=== PATIENT | male | born 1975 | race Caucasian/White ===

== ENCOUNTER 2018-08-22 22:44 | Emergency (ER) | payer BC ==
[2018-08-22 22:58] VITALS: RESP 18
[2018-08-22] MEDS ORDERED: MORPHINE SULFATE 4 MG/ML SYRINGE IV STA (23:01)
[2018-08-22] MEDS ORDERED: KETOROLAC 30 MG/ML 1 ML VIAL IVP STA (23:01)
[2018-08-22] MEDS ORDERED: ONDANSETRON ODT 8 MG TAB.RAPDIS PO STA (23:01)
[2018-08-22] MEDS ORDERED: SODIUM CHLORIDE 0.9% 1,000 ML IV STA (23:01)
[2018-08-22] MEDS ORDERED: ONDANSETRON 4 MG/2 ML VIAL IVP STA (23:05)
[2018-08-22 23:24] LABS: Appearance,Urine Cloudy (Clear); Bilirubin,Urine Negative (Negative); Blood,Urine Moderate (Negative); Calcium Oxalate Crystals,Urine Moderate /hpf; Color,Urine Yellow; Glucose,Urine (UA) Negative (Negative); Ketones,Urine 2+ (Negative); Leukocyte Esterase,Urine Negative (Negative); Mucus,Urine Occasional /hpf; Nitrite,Urine Negative (Negative); Protein,Urine 1+ (Negative); RBC,Urine 51 /hpf (0-5); Specific Gravity,Urine 1.031 (1.001-1.035); Squamous Epithelial Cell,Urine <1 /hpf (0-4); Urobilinogen,Urine <2.0 mg/dL (<2.0); WBC,Urine 3 /hpf (0-5)
[2018-08-22 23:34] LABS: Albumin 4.8 g/dL (3.5-5.0); Calcium 10.4 mg/dL (8.4-10.2); Total Bilirubin 1.2 mg/dL (0.2-1.3); Total Protein 7.8 g/dL (6.3-8.2)
[2018-08-22 23:36] LABS: Basophils # (A) 0.1 k/uL (0-0.2); Basophils % (A) 0 %; Eosinophils # (A) 0.2 k/uL (0-0.7); Eosinophils % (A) 1 %; HCT 45.3 % (39.0-53.0); HGB 15.1 gm/dL (13.0-17.5); Lymphocytes # (A) 1.3 k/uL (1.0-4.8); Lymphocytes % (A) 8 %; MCH 29.3 pg (25.0-35.0); MCHC 33.3 g/dL (31.0-37.0); MCV 87.9 fL (80.0-100.0); Mean Platelet Volume 6.3; Monocytes # (A) 0.8 k/uL (0-1.0); Monocytes % (A) 5 %; Neutrophils # (A) 13.8 k/uL (1.3-7.7); Neutrophils % (A) 85 %; Platelet Count 392 k/uL (150-450); RBC 5.15 m/uL (4.30-5.90); RDW 13.1 % (11.5-15.5); WBC 16.2 k/uL (3.8-10.6)
--- NOTE | 2018-08-22 23:48 | ED ---
Abdominal Pain HPI - General Chief Complaint: Abdominal Pain Stated Complaint: KIDNEY INFECTION Time Seen by Provider: 08/22/18 22:50 Source: patient Mode of arrival: ambulatory Limitations: no limitations - History of Present Illness Initial Comments: Patient is a 43-year-old male presenting for abdominal pain. The patient states that a couple weeks ago, he was having some urinary urge and it got better. On night, he started having left-sided flank pain which was last seen about 1.5 hours. It is associated with one episode of nausea and vomiting. He didn't saw the PCP on Friday and he was told that he could possibly have a urinary tract infection and therefore he is given ciprofloxacin. He has been on that medication for 2 days and he states that at 5 PM, he had a sudden onset of left-sided flank pain which was sharp and radiating to the testicles. He felt like he was radiating as well as wrapping around the left side of his abdomen. He denies any hematuria as well as dysuria. He denies any fevers or chills. - Related Data Previous Rx's Medication Instructions Recorded EPINEPHrine [Epipen 2-Yandel] 0.3 mg IM ONCE PRN #1 applicator 03/17/16 Ibuprofen [Motrin] 800 mg PO Q6HR PRN #20 tab 03/17/16 diphenhydrAMINE [Benadryl] 50 mg PO TID #9 capsule 03/17/16 methylPREDNISolone Dose Pack 4 mg PO DIRECTED #21 package 03/17/16 [Medrol Dose Pack] HYDROcodone/APAP 10-325MG [[place] 1 tab PO Q6HR PRN 3 Days #12 tab 08/23/18 10-325] Ondansetron Odt [Zofran Odt] 4 mg PO Q8HR PRN #15 tab 08/23/18 Allergies Allergy/AdvReac Type Severity Reaction Status Date / Time Sulfa (Sulfonamide AdvReac Unknown Verified 08/22/18 22:58 Antibiotics) Review of Systems ROS Statement: Those systems with pertinent positive or pertinent negative responses have been documented in the HPI. Constitutional: Negative for chills, fatigue and fever. HENT: Negative for congestion. Respiratory: Negative for chest tightness, shortness of breath and wheezing. Negative for cough Cardiovascular: Negative for chest pain and palpitations. Gastrointestinal: Negative for abdominal pain. Negative for abdominal distention , diarrhea, positive for left flank pain and nausea and vomiting. Genitourinary: Negative for dysuria. Positive for urinary hesitancy Musculoskeletal: Negative for back pain, neck pain and neck stiffness. Skin: Negative for color change. Neurological: Negative for dizziness, speech difficulty, weakness and light- headedness. Psychiatric/Behavioral: Negative for agitation and confusion. Negative for anxiety ROS Other: All systems not noted in ROS Statement are negative. Past Medical History Past Medical History: No Reported History History of Any Multi-Drug Resistant Organisms: None Reported Past Surgical History: Ablation, Appendectomy Past Psychological History: No Psychological Hx Reported Smoking Status: Never smoker Past Alcohol Use History: None Reported Past Drug Use History: None Reported General Exam - General Exam Comments Initial Comments: Constitutional: Pt appears well-developed and well-nourished. No distress. Head: Normocephalic and atraumatic. Eyes: EOM are normal. Neck: Normal range of motion. Neck supple. Cardiovascular: Normal rate, regular rhythm, S1 normal, S2 normal and normal heart sounds. Exam reveals no gallop and no friction rub. No murmur heard. Pulmonary/Chest: Effort normal and breath sounds normal. No tachypnea and no bradypnea. No respiratory distress. No wheezes or rales noted. Abdominal: Soft. Bowel sounds are normal. Pt exhibits no shifting dullness, no distension, no pulsatile liver, no fluid wave, no abdominal bruit and no ascites. There is no rigidity, no rebound, no guarding, no tenderness at McBurney's point and negative Garcia's sign. There is no tenderness. Musculoskeletal: Normal range of motion. Neurological: Pt is alert and oriented to person, place, and time. No cranial nerve deficit. Skin: Skin is warm and dry. No rash noted. Pt is not diaphoretic. No erythema. No pallor. Psychiatric: Pt has a normal mood and affect. Pt behavior is normal. Thought content normal. Limitations: no limitations Course Vital Signs 08/22/18 08/23/18 22:55 00:20 Temperature 98 F Pulse Rate 100 89 Respiratory 18 18 Rate Blood Pressure 147/107 149/89 O2 Sat by Pulse 98 98 Oximetry Medical Decision Making - Medical Decision Making Laboratory studies showed that there was mild leukocytosis of 16.2 and creatinine was measured at 1.42 and a GFR of 60. It is unclear whether this was acute kidney injury or chronic kidney disease. Nonetheless, there is no evidence of urinary tract infection and CT of the abdomen showed perinephric fat stranding and edema as well as edema around the left ureter. There is also a 5 mm stone at the left UVJ. Case is discussed with urology contract officer, Dr. Ybarra and it was mutually agreed that the patient could be discharged with close follow-up on Friday. Patient was advised to return to emergency department if he developed fevers, inability to urinate or intractable pain. At the time of disposition, the pain was well controlled and patient was agreeable to plan. - Lab Data Result diagrams: 08/22/18 23:11 08/22/18 23:11 Lab Results 08/22/18 08/22/18 08/22/18 Range/Units 23:11 23:11 23:11 WBC 16.2 H (3.8-10.6) k/uL RBC 5.15 (4.30-5.90) m/uL Hgb 15.1 (13.0-17.5) gm/dL Hct 45.3 (39.0-53.0) % MCV 87.9 (80.0-100.0) fL MCH 29.3 (25.0-35.0) pg MCHC 33.3 (31.0-37.0) g/dL RDW 13.1 (11.5-15.5) % Plt Count 392 (150-450) k/uL Neutrophils % 85 % Lymphocytes % 8 % Monocytes % 5 % Eosinophils % 1 % Basophils % 0 % Neutrophils # 13.8 H (1.3-7.7) k/uL Lymphocytes # 1.3 (1.0-4.8) k/uL Monocytes # 0.8 (0-1.0) k/uL Eosinophils # 0.2 (0-0.7) k/uL Basophils # 0.1 (0-0.2) k/uL Sodium 139 (137-145) mmol/L Potassium 4.0 (3.5-5.1) mmol/L Chloride 105 (98-107) mmol/L Carbon Dioxide 25 (22-30) mmol/L Anion Gap 9 mmol/L BUN 15 (9-20) mg/dL Creatinine 1.42 H (0.66-1.25) mg/dL Est GFR (CKD-EPI)AfAm 69 (>60 ml/min/1.73 sqM) Est GFR (CKD-EPI)NonAf 60 (>60 ml/min/1.73 sqM) Glucose 113 H (74-99) mg/dL Calcium 10.4 H (8.4-10.2) mg/dL Total Bilirubin 1.2 (0.2-1.3) mg/dL AST 33 (17-59) U/L ALT 48 (21-72) U/L Alkaline Phosphatase 90 (38-126) U/L Total Protein 7.8 (6.3-8.2) g/dL Albumin 4.8 (3.5-5.0) g/dL Urine Color Yellow Urine Appearance Cloudy (Clear) Urine pH 6.0 (5.0-8.0) Ur Specific [place] 1.031 (1.001-1.035) Urine Protein 1+ H (Negative) Urine Glucose (UA) Negative (Negative) Urine Ketones 2+ H (Negative) Urine Blood Moderate H (Negative) Urine Nitrite Negative (Negative) Urine Bilirubin Negative (Negative) Urine Urobilinogen <2.0 (<2.0) mg/dL Ur Leukocyte Esterase Negative (Negative) Urine RBC 51 H (0-5) /hpf Urine WBC 3 (0-5) /hpf Ur Squamous Epith Cells <1 (0-4) /hpf Calcium Oxalate Crystal Moderate H (None) /hpf Urine Mucus Occasional H (None) /hpf Disposition Clinical Impression: Ureteral calculus, left Disposition: HOME SELF-CARE Condition: Good Prescriptions: HYDROcodone/APAP 10-325MG [[place] 10-325] 1 tab PO Q6HR PRN 3 Days #12 tab PRN Reason: Pain Ondansetron Odt [Zofran Odt] 4 mg PO Q8HR PRN #15 tab PRN Reason: Nausea And Vomiting Is patient prescribed a controlled substance at d/c from ED?: Yes When asked, does pt state using other controlled substances?: No If prescribed controlled substance>3 days was MAPS reviewed?: Prescribed <3 Days If opioid is for acute pain is fill amount 7 days or less?: Yes If Rx opioid, was Start Talking consent form obtained?: Yes Referrals: Sarah Valenzuela MD [Primary Care Provider] - 1-2 days Aman Ybarra MD [STAFF PHYSICIAN] - 1-2 days Time of Disposition: 00:23
--- NOTE | 2018-08-22 23:57 | CT ---
EXAMINATION TYPE: CT abdomen pelvis wo con DATE OF EXAM: 08/22/2018 COMPARISON: None HISTORY: left sided flank pain CT DLP: 461 mGycm Automated exposure control for dose reduction was used. TECHNIQUE: Helical acquisition of images was performed from the lung bases through the pelvis. FINDINGS: Lung bases are clear. There is no pleural effusion. Heart size is normal. There is small hiatal herni a. Liver shows no focal defect. Gallbladder appears normal. Spleen appears normal. There is no pancreati c mass. There is no adrenal mass. There is left side hydronephrosis. There is perinephric stranding on the left side. There is 5 mm gisele culus lower pole left kidney. There is left-sided periureteral edema. There is 5 mm obstructing calcu olya in the distal left ureter near the ureterovesical junction. The right kidney shows no hydronephrosis. There is a 5 mm calculus upper pole right kidney. Appendix is not definitely seen. There is no sign of appendicitis. There is no intestinal wall thickening. The re are no evidence of mesenteric edema. Bladder distends smoothly. There is no inguinal hernia. There is no free fluid in the pelvis. There is no evidence of free air. The bony structures are intact. [place] pelvis is intact. There is no lumbar compression fracture. IMPRESSION: OBSTRUCTING CALCULUS IN THE DISTAL LEFT URETER WITH LEFT-SIDED HYDRONEPHROSIS AND PERINEPHRIC EDEMA. SMALL CALCULUS LEFT KIDNEY. Small calculus right kidney.
[2018-08-23 00:21] VITALS: BP 149/89; PULSE 89
[2018-08-23] MEDS ORDERED: MORPHINE SULFATE 4 MG/ML SYRINGE IVP STA (00:58)
[2018-08-23 01:09] VITALS: TEMP 98.6
== END 2018-08-23 01:08 | disposition home or self-care (01) ==
LOC: EC 22:44
DX: N20.1 Calculus of ureter (principal); D72.829 Elevated white blood cell count, unspecified; Z88.2 Allergy status to sulfonamides; Z90.49 Acquired absence of other specified parts of digestive tract; Z53.8 Procedure and treatment not carried out for other reasons
CPT/HCPCS: 36415; 80053; 85025; 81001; 74176; 99284; 96374; 96375 ×2; 96376; 96361; J2270 ×2; J2405; J1885

== ENCOUNTER → 2018-08-28 | Outpatient (CLI) | payer BC ==
--- NOTE | 2018-08-28 15:37 | XR ---
Abdomen HISTORY: Left-sided kidney stones Frontal view of the abdomen submitted on 2 images and correlated to prior CT abdomen pelvis 08/22/2018 There is an oval calcification seen at the level of distal ureter on the left corresponding to CT fin dings which measures approximately 5 mm in greatest dimension. Punctate calcification is present over the region of the lower pole the left kidney. Right kidney also shows a probable punctate calcificat ion at the upper pole although there is overlying bowel gas, calcification measures 3-4 mm. Lung bases are clear. No evident bowel obstruction or pneumoperitoneum. IMPRESSION: Bilateral nephrolithiasis. Distal left ureteral calculus.
== END | disposition home or self-care (01) ==
LOC: RADXRMAIN 10:11
PROVIDERS: ATTEND Urology
DX: N20.2 Calculus of kidney with calculus of ureter (principal)
CPT/HCPCS: 74018

== ENCOUNTER → 2018-09-25 | Outpatient (CLI) | payer BC ==
--- NOTE | 2018-09-25 09:44 | XR ---
EXAMINATION TYPE: XR KUB DATE OF EXAM: 09/25/2018 COMPARISON: 08/28/2018 HISTORY: Left renal stone TECHNIQUE: One view abdominal series FINDINGS: Retained fecal debris limits assessment the renal outlines. Right kidney: The stable appearing 3 mm calcification overlying the upper pole. Left kidney: Stable 3 mm calcification overlying the lower pole left kidney. Bowel gas pattern is nonspecific. Hypertrophic change of the vertebral column. Pelvis: Prestenotic calcification left hemipelvis is believed to still be present measures a diameter of 3 mm. IMPRESSION: 1. Stable bilateral nephrolithiasis and suspected distal left ureteral calculus.
== END ==
LOC: RADXRMAIN 09:10
PROVIDERS: ATTEND Urology
DX: N20.0 Calculus of kidney (principal)
CPT/HCPCS: 74018

== ENCOUNTER 2021-02-06 19:20 | Emergency (ER) | payer BC ==
--- NOTE | 2021-02-06 19:39 | ED ---
General Adult HPI - General Stated complaint: Left leg injury Time Seen by Provider: 02/06/21 19:25 - History of Present Illness Initial comments: 45-year-old male presents to emergency Department with a chief complaint of left leg pain. Patient reports he was playing baseball, sliding into third base when he felt some pain in the midshaft of the left femur. Patient reports he believes that he broke and displaced his femur bone. States he could feel a protrusion coming out that he was able to push it back in. Patient brought to the ED via EMS. He was given 15 mg of morphine. Patient denies any pain in his hip or knee. Denies any paresthesias. States most of the pain is located in the mid shaft of the femur. - Related Data Home Medications Medication Instructions Recorded Confirmed Loratadine 10 mg PO DAILY 02/06/21 02/06/21 Previous Rx's Medication Instructions Recorded Ibuprofen [Motrin] 800 mg PO Q6HR PRN #20 tab 03/17/16 Allergies Allergy/AdvReac Type Severity Reaction Status Date / Time Sulfa (Sulfonamide AdvReac Unknown Verified 02/06/21 20:50 Antibiotics) Review of Systems ROS Statement: Those systems with pertinent positive or pertinent negative responses have been documented in the HPI. ROS Other: All systems not noted in ROS Statement are negative. Past Medical History Past Medical History: No Reported History History of Any Multi-Drug Resistant Organisms: None Reported Past Surgical History: Ablation, Appendectomy Past Psychological History: No Psychological Hx Reported Past Alcohol Use History: None Reported Past Drug Use History: None Reported General Exam Limitations: no limitations General appearance: alert, in no apparent distress Head exam: Present: atraumatic, normocephalic, normal inspection Eye exam: Present: normal appearance, PERRL, EOMI Pupils: Present: normal accommodation ENT exam: Present: normal exam, normal oropharynx, mucous membranes moist Neck exam: Present: normal inspection, full ROM. Absent: tenderness Respiratory exam: Present: normal lung sounds bilaterally. Absent: respiratory distress, wheezes, rales Cardiovascular Exam: Present: regular rate, normal rhythm, normal heart sounds. Absent: systolic murmur Extremities exam: Present: normal inspection, full ROM, tenderness (Midshaft tenderness of the left femur. Tenderness over the left elbow.), normal capil rukhsana refill, other (Palpable DP and PT bilaterally. Sensation intact in the left lower extremity.). Absent: pedal edema, joint swelling, calf tenderness Back exam: Present: normal inspection, full ROM. Absent: tenderness Neurological exam: Present: alert, oriented X3 Psychiatric exam: Present: normal affect, normal mood Skin exam: Present: warm, dry, intact, normal color Course Vital Signs 02/06/21 19:25 Temperature 98.3 F Pulse Rate 97 Respiratory 18 Rate Blood Pressure 167/118 O2 Sat by Pulse 99 Oximetry Procedures - Orthopedic Splinting/Casting Injury #1 Side: left Upper Extremity Injury Location: elbow Upper Extremity Immobilizer: posterior splint, Rafael wrap, synthetic pre-padded splint Medical Decision Making - Medical Decision Making 45-year-old male presents to emergency Department with a chief complaint of left leg pain. On physical examination, patient is neurovascularly intact. X-ray reveals an acute, oblique fracture of the left femur, closed. There is about 2.2 cm of displacement. Patient received 15 mg of morphine in the ambulance. Patient received another 2 mg of Dilaudid here. 3 mg of Versed for displacement of the knee immobilizer. Also a traction was applied prior to placement of the knee immobilizer. This was performed with . Patient also has a radial head, nondisplaced fracture of the left elbow. Posterior splint applied. I discussed the case with who will accept transfer. Patient is otherwise well-appearing at this time. - Lab Data Result diagrams: 02/06/21 21:11 02/06/21 20:36 Lab Results 02/06/21 02/06/21 Range/Units 20:36 21:11 WBC 13.1 H (3.8-10.6) k/uL RBC 4.54 (4.30-5.90) m/uL Hgb 13.8 (13.0-17.5) gm/dL Hct 39.4 (39.0-53.0) % MCV 86.8 (80.0-100.0) fL MCH 30.3 (25.0-35.0) pg MCHC 34.9 (31.0-37.0) g/dL RDW 13.2 (11.5-15.5) % Plt Count 351 (150-450) k/uL MPV 7.1 Neutrophils % 85 % Lymphocytes % 9 % Monocytes % 4 % Eosinophils % 1 % Basophils % 1 % Neutrophils # 11.1 H (1.3-7.7) k/uL Lymphocytes # 1.2 (1.0-4.8) k/uL Monocytes # 0.5 (0-1.0) k/uL Eosinophils # 0.2 (0-0.7) k/uL Basophils # 0.1 (0-0.2) k/uL Sodium 141 (137-145) mmol/L Potassium 4.5 (3.5-5.1) mmol/L Chloride 109 H (98-107) mmol/L Carbon Dioxide 24 (22-30) mmol/L Anion Gap 8 mmol/L BUN 15 (9-20) mg/dL Creatinine 1.13 (0.66-1.25) mg/dL Est GFR (CKD-EPI)AfAm >90 (>60 ml/min/1.73 sqM) Est GFR (CKD-EPI)NonAf 78 (>60 ml/min/1.73 sqM) Glucose 100 H (74-99) mg/dL Calcium 9.3 (8.4-10.2) mg/dL Total Bilirubin 0.5 (0.2-1.3) mg/dL AST 44 (17-59) U/L ALT 49 (4-49) U/L Alkaline Phosphatase 104 (38-126) U/L Total Protein 6.6 (6.3-8.2) g/dL Albumin 4.3 (3.5-5.0) g/dL Disposition Clinical Impression: Left femoral shaft fracture, Left radial head fracture Disposition: OTHER INSTITUTION NOT DEFINED Condition: Stable Is patient prescribed a controlled substance at d/c from ED?: No Referrals: Sarah Valenzuela MD [Primary Care Provider] - 1-2 days Time of Disposition: 21:29 - Out of Hospital Transfer - Req. Specs Out of Hospital Transfer - Requested Specifics: Other Emergency [facility] ([facility])
[2021-02-06 19:40] VITALS: TEMP 98.3
[2021-02-06] MEDS ORDERED: HYDROmorphone 1 MG/ML 1 ML SYRINGE IVP STA ×3 (20:21→22:22)
--- NOTE | 2021-02-06 20:30 | XR ---
EXAMINATION TYPE: XR femur LT DATE OF EXAM: 02/06/2021 COMPARISON: NONE HISTORY: Pain TECHNIQUE: 5 views FINDINGS: There is oblique fracture mid shaft of the left femur. There is 2.2 cm medial displacement of the distal fragment. There is slight medial angulation. There is no dislocation at the hip joint a nd knee joint. IMPRESSION: Acute mildly displaced fracture mid shaft of the left femur.
--- NOTE | 2021-02-06 20:35 | XR ---
EXAMINATION TYPE: XR elbow complete LT DATE OF EXAM: 02/06/2021 COMPARISON: NONE HISTORY: Pain TECHNIQUE: 3 views FINDINGS: There is transverse fracture of the neck of the radial head. There is no dislocation. The p roximal ulna is intact. Distal humerus is intact. IMPRESSION: Acute nondisplaced fracture of the neck of the radial head.
[2021-02-06 20:55] LABS: ALT 49 U/L (4-49); AST 44 U/L (17-59); African American GFR (CKD) >90 (>60 ml/min/1.73 sqM); Albumin 4.3 g/dL (3.5-5.0); Alkaline Phosphatase 104 U/L (38-126); Anion Gap 8 mmol/L; Blood Urea Nitrogen 15 mg/dL (9-20); Calcium 9.3 mg/dL (8.4-10.2); Carbon Dioxide 24 mmol/L (22-30); Chloride 109 mmol/L (98-107); Glucose 100 mg/dL (74-99); Non-African American GFR(CKD) 78 (>60 ml/min/1.73 sqM); Potassium 4.5 mmol/L (3.5-5.1); Sodium 141 mmol/L (137-145); Total Bilirubin 0.5 mg/dL (0.2-1.3); Total Protein 6.6 g/dL (6.3-8.2)
[2021-02-06] MEDS ORDERED: MIDAZOLAM 1 MG/ML 5 ML VIAL IV STA (21:11)
[2021-02-06 21:19] LABS: Basophils # (A) 0.1 k/uL (0-0.2); Basophils % (A) 1 %; Eosinophils # (A) 0.2 k/uL (0-0.7); Eosinophils % (A) 1 %; HCT 39.4 % (39.0-53.0); HGB 13.8 gm/dL (13.0-17.5); Lymphocytes # (A) 1.2 k/uL (1.0-4.8); Lymphocytes % (A) 9 %; MCH 30.3 pg (25.0-35.0); MCHC 34.9 g/dL (31.0-37.0); MCV 86.8 fL (80.0-100.0); Mean Platelet Volume 7.1; Monocytes # (A) 0.5 k/uL (0-1.0); Monocytes % (A) 4 %; Neutrophils # (A) 11.1 k/uL (1.3-7.7); Neutrophils % (A) 85 %; Platelet Count 351 k/uL (150-450); RBC 4.54 m/uL (4.30-5.90); RDW 13.2 % (11.5-15.5); WBC 13.1 k/uL (3.8-10.6)
[2021-02-06 21:25] LABS: Prothrombin Time 10.3 sec (9.0-12.0)
[2021-02-06 21:40] LABS: Partial Thromboplastin Time 20.1 sec (22.0-30.0)
--- NOTE | 2021-02-06 21:46 | XR ---
EXAMINATION TYPE: XR femur LT DATE OF EXAM: 02/06/2021 COMPARISON: NONE HISTORY: Post reduction TECHNIQUE: 3 views FINDINGS: There is oblique mid shaft fracture of the left femur. There is 50% medial displacement of the distal fragment. There is slight overriding of the fragments. There is improved apposition of the fragments compared to initial exam. IMPRESSION: Improved apposition of the fragments compared to initial exam.
[2021-02-06 21:55] VITALS: RESP 17
[2021-02-06 22:40] VITALS: BP 144/89; PULSE 78
== END 2021-02-06 22:40 | disposition other institution (70) ==
LOC: EC 19:20
DX: S72.302A Unspecified fracture of shaft of left femur, initial encounter for closed fracture (principal); S52.125A Nondisplaced fracture of head of left radius, initial encounter for closed fracture; Z88.2 Allergy status to sulfonamides; W19.XXXA Unspecified fall, initial encounter; Y93.64 Activity, baseball; Y92.89 Other specified places as the place of occurrence of the external cause
CPT/HCPCS: 36415; 80053; 85025; 85610; 85730; 73552; 73080; 99285; 96374 ×2; 96375; 29125; J2250; J1170

== ENCOUNTER → 2022-02-06 | Outpatient (CLI) | payer BC ==
--- NOTE | 2022-02-06 15:24 | XR ---
Left femur HISTORY: S 72.402K Frontal and lateral views of the left femur submitted on 4 images and correlated to prior exam 02/07/20 21 Intramedullary rambo placement has been performed in the interval. There is anatomic alignment. Cortica l thickening is present at the site of the mid diaphyseal fracture consistent with fracture healing. Distal aspect of the intramedullary rambo is at the level of the intercondylar notch. There are side sc rews present proximally and distally. Lucency along the rambo may be due to local bone resorption. Enth esophyte present at the insertion of the facets tendon. IMPRESSION: Orthopedic follow-up as described.
== END | disposition home or self-care (01) ==
LOC: RADXRMAIN 14:26
PROVIDERS: ATTEND Orthopaedic Surgery
DX: S72.402K Unspecified fracture of lower end of left femur, subsequent encounter for closed fracture with nonunion (principal)

== ENCOUNTER 2023-09-19 12:30 | Day surgery (SDC) | payer BC ==
[~2023-09-19 12:30] MED LIST: HYDROmorphone 0.5 MG/0.5 ML SYRINGE IVP PRN; LIDOCAINE 1% (10MG/ML) FOR IV START INTRADERMA PRN
[2023-09-19] MEDS: LACTATED RINGERS 1,000 ML IV SCH (13:20)
[2023-09-19] MEDS: ONDANSETRON 4 MG/2 ML VIAL IVP PRN (13:25)
[2023-09-19] MEDS: DEXAMETHASONE SOD PHOSPHATE 4 MG/ML 1 ML VIAL IV ONE (13:25)
[2023-09-19 13:33] VITALS: RESP 16; TEMP 97.1
[2023-09-19] MEDS: MIDAZOLAM 2 MG/2 ML VIAL IVP ONE (13:38)
--- NOTE | 2023-09-19 13:55 | P.ANPRN ---
Procedure Note - Anesthesia - Nerve Block Performed Right Popliteal Single Time Out Performed: Yes Date of Procedure: 09/19/23 Procedure Start Time: 13:38 Procedure Stop Time: 13:42 Location of Patient: PreOp Indication: Acute Post-Operative Pain, Analgesia, Requested by Surgeon Sedation Type: Sedate with meaningful contact maintained Preparation: Sterile Prep Position: Left Lateral Catheter: None Needle Types: Pajunk Needle Gauge: 21 Ultrasound used to visualize needle placement: Yes Ultrasound used to observe medication spread: Yes Injectate: 0.5% Ropivacaine (see comment for volume) (Ropiv 25ml+dexamethadon 4mg) Blood Aspirated: No Pain Paresthesia on Injection Noted: No Resistance on Injection: Normal Image Stored and Saved: Yes
--- NOTE | 2023-09-19 13:57 | P.ANPRN ---
Procedure Note - Anesthesia - Nerve Block Performed Right Adductor Canal Single Time Out Performed: Yes Date of Procedure: 09/19/23 Procedure Start Time: 13:43 Procedure Stop Time: 13:50 Location of Patient: PreOp Indication: Acute Post-Operative Pain, Analgesia, Requested by Surgeon Sedation Type: Sedate with meaningful contact maintained Preparation: Sterile Prep Position: Supine Needle Types: Pajunk Needle Gauge: 21 Ultrasound used to visualize needle placement: Yes Ultrasound used to observe medication spread: Yes Injectate: 0.5% Ropivacaine (see comment for volume) (Ropiv 15ml+dexamethason 4mg) Blood Aspirated: No Pain Paresthesia on Injection Noted: No Resistance on Injection: Normal Image Stored and Saved: Yes Events: Uneventful and Well Tolerated
[2023-09-19] MEDS ORDERED: MIDAZOLAM 2 MG/2 ML VIAL ONE (14:48)
[2023-09-19] MEDS ORDERED: DEXAMETHASONE SOD PHOSPHATE 10 MG/ML 1 ML VIAL ONE (14:48)
[2023-09-19] MEDS ORDERED: GLYCOPYRROLATE 0.2 MG/ML 2 ML VIAL ONE (14:48)
[2023-09-19] MEDS ORDERED: PROPOFOL 10 MG/ML 20 ML VIAL IV ONE (14:48)
[2023-09-19] MEDS ORDERED: NEOSTIGMINE 1 MG/ML 10 ML VIAL ONE (14:48)
[2023-09-19] MEDS ORDERED: ROCURONIUM 10 MG/ML (5 ML VIAL) IV ONE (14:48)
[2023-09-19] MEDS ORDERED: LIDOCAINE 1% INJ 10MG/ML (20 ML MDV) ONE (14:48)
[2023-09-19] MEDS ORDERED: fentaNYL (PF) 50 MCG/ML 2 ML AMP ONE (14:48)
[2023-09-19] MEDS ORDERED: DEXAMETHASONE SOD PHOSPHATE 4 MG/ML 1 ML VIAL ONE (14:48)
[2023-09-19] MEDS ORDERED: SUCCINYLCHOLINE CHLORIDE 200 MG/10 ML VIAL IV ONE (14:48)
[2023-09-19] MEDS ORDERED: BUPIVACAIN-EPI 0.5%-1:200,000 30 ML VIAL ONE (14:48)
[2023-09-19] MEDS: LACTATED RINGERS 1,000 ML IV ONE (15:50)
--- NOTE | 2023-09-19 16:07 | P.OP ---
Date of Procedure: 09/19/23 Preoperative Diagnosis: Right Achilles tendon rupture Postoperative Diagnosis: Same Procedure(s) Performed: Open repair of right Achilles tendon rupture Implants: Arthrex 4.75 mm swivel lock anchors 2 Anesthesia: MARISELAA Surgeon: Cheko Paul Estimated Blood Loss (ml): 3 Pathology: none sent Condition: stable Disposition: PACU Description of Procedure: Prior to the patient being brought to the operative room, anesthesia administered a nerve block and affected lower extremity. The patient was then brought into the operating room where timeout was taken to confirm correct patient identifiers, correct laterally of surgery, and correct procedure. Once all staff in the room were in agreement the timeout, the patient was induced and placed under general anesthesia. The patient was then placed on the operating table in the prone position, with appropriate padding in the thoracic area as well as the face. Once anesthesia was satisfied with position of the patient, a well-padded tourniquet was placed on the thig of the surgical leg. The leg was then prepped and draped in usual manner. The leg was exsanguinated, the knee flexed, and then the tourniquet inflated to 250 mmHg. Attention was directed to the posterior aspect the ankle, where there was a palpable defect in the watershed area of the Achilles tendon. A transverse incision was made near the proximal stump of the Achilles rupture. It was deepened under the subcutaneous tissue careful to identify, avoid, and retract any neurovascular structures and cauterize any bleeding vessels. Blunt dissection was continued down to level of the peritenon. Blunt instrumentation was inserted on the medial lateral side of the Achilles tendon to separate the peritenon from the proximal stump. A large sponge forceps was used to grasp proximal stump of the Achilles tendon and pull it distally. The Arthrex PARS jig was inserted on either side of the Achilles tendon with the inner arms inside the peritenon. With tension placed on the proximal stump of the Achilles tendon, a needle was passed through the #1 position of the PARS jig to lock the tendon in place. The #2 suture was passed next. The looped locking stitches were passed through the holes 3 and 4. The last suture was through 5. The sutures are then evened out and then the PARS jig was retracted distally to pull the suture within the peritenon and along the course of the proximal stump of the Achilles tendon. The sutures were delivered into the surgical field. The looped sutures were used to pass the #2 suture to create a locking stitch both medially and laterally. The looped sutures then placed on the back table and set aside. Tension was placed on both suture stacks and pulled distally to remove any creep from the suture in the tendon. Once the creep was removed, tension was placed on the tendon and it was indicated that the suture had a good grasp of the tendon given that the gastroc muscle belly was moving while pulling on the suture. 2 small stab incisions were made on the medial lateral aspects of the Achilles tendon insertion over the calcaneus. Those incisions are taken directly down to bone. The drill bit for the 4.75 mm swivel lock anchor was used to create drill holes in the calcaneus. The drill holes were then tapped. The suture passer was placed through the calcaneal incisions and then passed through the distal stump of the Achilles tendon exiting out at the rupture site. The suture passer was then used to grasp the suture stack and pull it through the distal stump of the tendon and out the corresponding incision over the calcaneus. This is then repeated with the opposite side. With tension placed on the suture to bring the tendon ends together, the suture was passed through the swivel lock anchor which was then inserted into the drill hole in the calcaneus and the swivel lock was impacted and advanced to lock the suture in place. This was then repeated for the opposite side. Then the knee was flexed and Javier's test was performed. Javier's test was negative. The suture was cut and the wound is thoroughly irrigated with antibiotic saline. Subcutaneous closure of all incisions was done with 4-0 Monocryl. The L-shaped incision over the rupture was closed with 4-0 Stratafix in a running subcuticular manner. Dermal glue was applied over all the incisions as well as the gayle made by the passing needles. Once dried Steri-Strips are placed over the incisions. An Arthrex jumpstart dressing was placed over the incisions and then covered with a dry sterile dressing. The tourniquet was released and capillary refill return to the digits on the affected foot. Then the patient was placed in a below-knee fracture boot with the ankle slightly plantar flexed. The patient was rolled onto the transfer table in the supine position and then anesthesia was reversed. The patient was taken recovery with vital signs stable.
[2023-09-19 17:33] VITALS: BP 124/74; PULSE 92
== END 2023-09-19 17:38 | disposition home or self-care (01) ==
LOC: OR 12:30
PROVIDERS: ATTEND Podiatrist
DX: S86.011A Strain of right Achilles tendon, initial encounter (principal); I10 Essential (primary) hypertension; E78.5 Hyperlipidemia, unspecified; I49.9 Cardiac arrhythmia, unspecified; M19.90 Unspecified osteoarthritis, unspecified site; Z79.899 Other long term (current) drug therapy; Z88.2 Allergy status to sulfonamides; X58.XXXA Exposure to other specified factors, initial encounter
CPT/HCPCS: 27650; 64447; 64445; C1713 ×2; J2250; J0330; J1100 ×2; J2710; J0690; J2405; J2001; J3010; J2704

== ENCOUNTER → 2023-10-09 | Outpatient (CLI) | payer BC ==
--- NOTE | 2023-10-12 16:23 | CT ---
EXAMINATION TYPE: CT soft tissue neck w con CT DLP: 507.8 mGycm, Automated exposure control for dose reduction was used. DATE OF EXAM: 10/09/2023 4:42 PM COMPARISON: None. CLINICAL INDICATION:Male, 48 years old with history of L90.5 SCAR CONDITIONS AND FIBROSIS OF SKIN, sw elling in throat TECHNIQUE: Standard enhanced CT of the neck. Axial sections with coronal and sagittal reformats were obtained. Contrast used:100 mL of Isovue 300 with IV Contrast, (None if empty) Oral contrast used: (None if empty) FINDINGS: Brain: Visualized portions are grossly unremarkable. Orbits: Unremarkable Sinuses: Grossly unremarkable. Spaces of the neck: Clear and symmetric. Oropharynx and hypopharynx are relatively symmetric no evide nce of mass or organizing fluid collection. No evidence for stenosis of the airway. Musculoskeletal: No acute osseous pathology. Lymph nodes: Multiple nonenlarged lymph nodes are seen along both anterior chains of the neck. Vascular structures: Visualized major arteries are patent without evidence of aneurysm. Thoracic Inlet/airway: Airway is patent. The lung apices are clear. Soft tissues/Thyroid: Thyroid and remainder of the soft tissues are unremarkable. Other: none. IMPRESSION The oropharynx and hypopharynx appear symmetric without evidence for mass. The airway is patent. No e vidence for lymphadenopathy.
== END | disposition home or self-care (01) ==
LOC: RADCTMAIN 16:13
PROVIDERS: ATTEND Otolaryngology
DX: L90.5 Scar conditions and fibrosis of skin (principal)
CPT/HCPCS: 70491; Q9967

== ENCOUNTER 2024-08-17 10:51 | Day surgery (SDC) | payer BC ==
[2024-08-17] MEDS ORDERED: LIDOCAINE 1% (10MG/ML) FOR IV START INTRADERMA PRN (12:22)
[2024-08-17 12:29] VITALS: TEMP 97.2
[2024-08-17] MEDS: IV FLUID CONTINUATION 1,000 ML IV ONE (12:39)
[2024-08-17] MEDS: LACTATED RINGERS 1,000 ML IV SCH (12:40)
[2024-08-17] MEDS ORDERED: LIDOCAINE 1% INJ 10MG/ML (20 ML MDV) ONE (12:50)
[2024-08-17] MEDS ORDERED: PROPOFOL 10 MG/ML 20 ML VIAL IV ONE (12:50)
--- NOTE | 2024-08-17 13:03 | P.PCN ---
Date of Procedure: 08/17/24 Procedure(s) Performed: BRIEF HISTORY: Patient is a 49-year-old pleasant white male scheduled for an elective colonoscopy as a part of screening for colon cancer. PROCEDURE PERFORMED: Colonoscopy. PREOPERATIVE DIAGNOSIS: Screening for colon cancer. IV sedation per Anesthesia. PROCEDURE: After informed consent was obtained, the patient, was brought into the endoscopy unit. IV sedation was administered by Anesthesia under continuous monitoring. Digital rectal examination was normal. Initially the Olympus CF-160 flexible video colonoscope was then inserted in the rectum, gradually advanced into the cecum without any difficulty. Careful examination was performed as the scope was gradually being withdrawn. Ileocecal valve and the appendiceal orifice were visualized and appeared normal. Prep was excellent. Mucosa of the cecum, ascending colon, transverse colon, descending colon, sigmoid colon, and rectum appeared normal. Scattered sigmoid diverticulosis. Retroflexion was performed in the rectum and no lesions were seen. The patient tolerated the procedure well. IMPRESSION: Normal-appearing colon from rectum to cecum with no evidence of colorectal neoplasia Scattered sigmoid diverticulosis. RECOMMENDATIONS: Findings of this examination were discussed with the patient as well as his family. He was advised to have repeat screening colonoscopy in 10 years..
[2024-08-17 13:31] VITALS: BP 127/82; PULSE 69; RESP 18
== END 2024-08-17 13:41 | disposition home or self-care (01) ==
LOC: ORWHC2ENDO 10:51
PROVIDERS: ATTEND Internal Medicine Gastroenterology
DX: Z12.11 Encounter for screening for malignant neoplasm of colon (principal); K57.30 Diverticulosis of large intestine without perforation or abscess without bleeding; I10 Essential (primary) hypertension; E78.5 Hyperlipidemia, unspecified; F17.200 Nicotine dependence, unspecified, uncomplicated; Z88.2 Allergy status to sulfonamides; Z87.442 Personal history of urinary calculi; Z79.899 Other long term (current) drug therapy; Z90.49 Acquired absence of other specified parts of digestive tract; Z98.890 Other specified postprocedural states

== ENCOUNTER 2025-03-03 11:58 | Emergency (ER) | payer BC ==
[2025-03-03 12:03] VITALS: TEMP 97.5
[2025-03-03 12:37] LABS: Basophils # (A) 0.09 10*3/uL (0.00-0.10); Basophils % (A) 1.4 %; Eosinophils # (A) 0.21 10*3/uL (0.04-0.35); Eosinophils % (A) 3.3 %; HCT 43.9 % (39.6-50.0); HGB 15.8 g/dL (13.0-17.0); Lymphocytes # (A) 1.36 10*3/uL (0.90-5.00); Lymphocytes % (A) 21.6 %; MCH 30.4 pg (27.0-32.0); MCHC 36.0 g/dL (32.0-37.0); MCV 84.4 fL (80.0-97.0); Monocytes # (A) 0.47 10*3/uL (0.20-1.00); Monocytes % (A) 7.5 %; Neutrophils # (A) 4.14 10*3/uL (1.80-7.70); Neutrophils % (A) 65.9 %; Platelet Count 328 10*3/uL (140-440); RBC 5.20 10*6/uL (4.40-5.60); RDW 12.9 % (11.5-14.5); WBC 6.29 10*3/uL (4.50-10.00)
--- NOTE | 2025-03-03 12:38 | ED ---
General Adult HPI - General Chief complaint: Chest Pain Stated complaint: Chest pain Time Seen by Provider: 03/03/25 12:12 Source: patient Mode of arrival: ambulatory Limitations: no limitations - History of Present Illness Initial comments: Dictation was produced using [employer] dictation software. please excuse any grammatical, word or spelling errors. Chief Complaint: 49-year-old male presents emergency department for feeling foggy History of Present Illness: Patient is a 49-year-old male presents to the emergency department for feeling weak. Yesterday an episode of what he reports as chest squeezing. Lasted for several minutes located to his left lower anterior chest. No associated diaphoresis or nausea. Patient denies any coronary artery history. 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 States that this morning he felt a little lightheaded and sweaty. Did have short episode of headache. States that at the bedside he has no pain complaints but he does report feeling a little groggy. States that over the last several days he has been working harder than usual. 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 The ROS documented in this emergency department record has been reviewed and confirmed by me. Those systems with pertinent positive or negative responses have been documented in the HPI. All other systems are other negative and/or noncontributory. - Related Data Home Medications Medication Instructions Recorded Confirmed Acetaminophen [Tylenol Extra 500 mg PO DIRECTED PRN 09/17/23 08/17/24 Strength] Cholecalciferol [Vitamin D3 (25 25 mcg PO DAILY 09/17/23 08/17/24 Mcg = 1000 Iu)] Magnesium Citrate and Oxide 250 mg PO DAILY 09/17/23 08/17/24 [Magnesium] Metoprolol Succinate (ER) [Toprol 100 mg PO HS 09/17/23 08/17/24 Xl] Mv-Mn/FA/K1/Resver/Lutein/Herb 1 each PO DAILY 09/17/23 08/17/24 [Alive Energy 50 Plus Tablet] Rosuvastatin [Crestor] 20 mg PO HS 09/17/23 08/17/24 hydroCHLOROthiazide [Hydrodiuril] 50 mg PO DAILY 09/17/23 08/17/24 Ibuprofen [Motrin Ib] 400 mg PO Q8H 08/12/24 08/17/24 Allergies Allergy/AdvReac Type Severity Reaction Status Date / Time Sulfa (Sulfonamide AdvReac Unknown Verified 03/03/25 12:03 Antibiotics) Review of Systems ROS Statement: Those systems with pertinent positive or pertinent negative responses have been documented in the HPI. ROS Other: All systems not noted in ROS Statement are negative. Past Medical History Past Medical History: Hyperlipidemia, Hypertension, Musculoskeletal Disorder Additional Past Medical History / Comment(s): hx. tachycardia-had ablation, kidney stones, was told osteoporosis in the past-took med. & take supplements & per his endocrin. big improvement & no current problems, ruptured right achilles 2023 History of Any Multi-Drug Resistant Organisms: None Reported Past Surgical History: Appendectomy, Cardiac Ablation, Orthopedic Surgery Additional Past Surgical History / Comment(s): ORIF left femur, lithotripsy, Rt. achilles tendon repair Past Anesthesia/Blood Transfusion Reactions: No Reported Reaction Additional Past Anesthesia/Blood Transfusion Reaction / Comment(s): slow to wake up Past Psychological History: No Psychological Hx Reported Smoking Status: Never smoker Past Alcohol Use History: None Reported, Occasional Past Drug Use History: None Reported - Past Family History Mother Family Medical History: No Reported History General Exam - General Exam Comments Initial Comments: PHYSICAL EXAM: General Impression: Alert and oriented x3, not in acute distress HEENT: Normocephalic atraumatic, extra-ocular movements intact, pupils equal and reactive to light bilaterally, mucous membranes moist. Cardiovascular: Heart regular rate and rhythm Chest: Able to complete full sentences, no retractions, no tachypnea Abdomen: abdomen soft, non-tender, non-distended, no organomegaly Musculoskeletal: Pulses present and equal in all extremities, no peripheral e aisha Motor: no focal deficits noted Neurological: CN II-XII grossly intact, no focal motor or sensory deficits noted Skin: Intact with no visualized rashes Psych: Normal affect and mood Limitations: no limitations Course Vital Signs 03/03/25 03/03/25 03/03/25 11:59 12:43 13:00 Temperature 97.5 F L Pulse Rate 80 82 80 Respiratory 18 16 18 Rate Blood Pressure 126/85 133/81 132/79 O2 Sat by Pulse 97 98 98 Oximetry 03/03/25 13:45 Temperature Pulse Rate 82 Respiratory 16 Rate Blood Pressure 135/75 O2 Sat by Pulse 98 Oximetry EKG Findings - EKG Comments: EKG Findings:: My EKG interpretation: Ventricular rate 73, sinus rhythm, CO 130, QRS 146, QTc 454. No CO prolongation, no QTC prolongation, no ST or T-wave changes noted. EKG compared to September 19, 2023 showing no changes. Overall, this EKG is unremarkable Medical Decision Making - Medical Decision Making Was pt. sent in by a medical professional or institution (, PA, SHAKE SPLITTER, urgent care, hospital, or usp...) When possible be specific @ -No Did you speak to anyone other than the patient for history (EMS, parent, family, police, friend...)? What history was obtained from this source @ -No Did you review nursing and triage notes (agree or disagree)? Why? @ -I reviewed and agree with nursing and triage notes Were old charts reviewed (outside hosp., previous admission, EMS record, old EKG, old radiological studies, urgent care reports/EKG's, usp records)? Report findings @ -No old charts were reviewed Differential Diagnosis (chest pain, altered mental status, abdominal pain women, abdominal pain men, vaginal bleeding, musculoskeletal, weakness, fever, dyspnea, syncope, headache, dizziness, GI bleed, back pain, seizure, CVA, palpatations, mental health)? @ -Differential Weakness: Hypoglycemia, shock, sepsis, hyponatremia, anemia, infection, DE, ETOH, adverse medicine reaction, overdose, stroke, this is not meant to be an all-inclusive list. EKG interpreted by me (3pts min.). @ -See above X-rays interpreted by me (1pt min.). @ -Chest x-ray is nonacute CT interpreted by me (1pt min.). @ -None done U/S interpreted by me (1pt. min.). @ -None done What testing was considered but not performed or refused? (CT, X-rays, U/S, labs)? Why? @ -None What meds were considered but not given or refused? Why? @ -None Was smoking cessation discussed for >3mins.? @ -No Were there social determinants of health that impacted care today? How? (Homelessness, low income, unemployed, alcoholism, drug addiction, transportation, low edu. Level, literacy, decrease access to med. care, usp, rehab)? @ -No Was there de-escalation of care discussed even if they declined (Discuss DNR or withdrawal of care, Hospice)? DNR status @ -No What co-morbidities impacted this encounter? (DM, HTN, Smoking, COPD, CAD, Cancer, CVA, ARF, Chemo, Hep., AIDS, mental health diagnosis, sleep apnea, morbid obesity)? @ -None Was patient admitted / discharged? Hospital course, mention meds given and route, prescriptions, significant lab abnormalities, going to OR and other pe rtinent info. @ -49-year-old male presents emergency department with generalized weakness and fatigue. Did have some chest pain yesterday. Vital signs stable. EKG is unremarkable. Laboratory evaluation obtained. Labs are unremarkable. Troponin is negative. Patient's chest pain is atypical he has low heart score. Patient will be discharged vies follow-up with primary care doctor. Feels better after IV fluids Did you discuss the management of the patient with other professionals (alejandro aguilar i.e. , PA, SHAKE SPLITTER, lab, RT, psych nurse, manager social, community education coordinator, teacher, air force senior officer, block and case maker)? Give summary @ -No Was critical care preformed (if so, how long)? @ -No Undiagnosed new problem with uncertain prognosis? @ -No Drug Therapy requiring intensive monitoring for toxicity (Heparin, Nitro, Insulin, Cardizem)? @ -No Were any procedures done? @ -No Diagnosis/symptom? Acute, or Chronic, or Acute on Chronic? Uncomplicated (without systemic symptoms) or Complicated (systemic symptoms)? @ -Fatigue Side effects of treatment? @ -No Exacerbation, Progression, or Severe Exacerbation? @ -No Poses a threat to life or bodily function? How? (Chest pain, USA, DE, pneumonia, PE, COPD, DKA, ARF, appy, cholecystitis, CVA, Diverticulitis, Homicidal, Suicidal, threat to staff... and all critical care pts) @ -No - Lab Data Result diagrams: 03/03/25 12:31 03/03/25 12:31 Lab Results 03/03/25 03/03/25 03/03/25 Range/Units 12:31 12:31 12:31 WBC 6.29 (4.50-10.00) 10*3/uL RBC 5.20 (4.40-5.60) 10*6/uL Hgb 15.8 (13.0-17.0) g/dL Hct 43.9 (39.6-50.0) % MCV 84.4 (80.0-97.0) fL MCH 30.4 (27.0-32.0) pg MCHC 36.0 (32.0-37.0) g/dL Plt Count 328 (140-440) 10*3/uL MPV 9.7 (9.5-12.2) fL Immature Gran % (Auto) 0.3 % Neutrophils % 65.9 % Lymphocytes % 21.6 % Monocytes % 7.5 % Eosinophils % 3.3 % Basophils % 1.4 % Immature Gran # 0.02 (0.00-0.04) 10*3/uL Neutrophils # 4.14 (1.80-7.70) 10*3/uL Lymphocytes # 1.36 (0.90-5.00) 10*3/uL Monocytes # 0.47 (0.20-1.00) 10*3/uL Eosinophils # 0.21 (0.04-0.35) 10*3/uL Basophils # 0.09 (0.00-0.10) 10*3/uL PT 10.3 (10.0-12.5) sec INR 0.9 (<1.2) APTT 20.5 L (22.0-30.0) sec Sodium 138 (137-145) mmol/L Potassium 4.2 (3.5-5.1) mmol/L Chloride 99 (98-107) mmol/L Carbon Dioxide 26 (22-30) mmol/L Anion Gap 13 mmol/L BUN 17 (9-20) mg/dL Creatinine 0.91 (0.66-1.25) mg/dL Est GFR (CKD-EPI)AfAm >90 (>60 ml/min/1.73 sqM) Est GFR (CKD-EPI)NonAf >90 (>60 ml/min/1.73 sqM) Glucose 131 H (74-99) mg/dL Calcium 9.7 (8.4-10.2) mg/dL Magnesium 2.0 (1.6-2.3) mg/dL Total Bilirubin 1.4 H (0.2-1.3) mg/dL AST 63 H (17-59) U/L ALT 68 H (4-49) U/L Alkaline Phosphatase 76 (38-126) U/L Troponin I (0.000-0.034) ng/mL Total Protein 7.8 (6.3-8.2) g/dL Albumin 4.9 (3.5-5.0) g/dL 03/03/ Range/Units 12:31 WBC (4.50-10.00) 10*3/uL RBC (4.40-5.60) 10*6/uL Hgb (13.0-17.0) g/dL Hct (39.6-50.0) % MCV (80.0-97.0) fL MCH (27.0-32.0) pg MCHC (32.0-37.0) g/dL Plt Count (140-440) 10*3/uL MPV (9.5-12.2) fL Immature Gran % (Auto) % Neutrophils % % Lymphocytes % % Monocytes % % Eosinophils % % Basophils % % Immature Gran # (0.00-0.04) 10*3/uL Neutrophils # (1.80-7.70) 10*3/uL Lymphocytes # (0.90-5.00) 10*3/uL Monocytes # (0.20-1.00) 10*3/uL Eosinophils # (0.04-0.35) 10*3/uL Basophils # (0.00-0.10) 10*3/uL PT (10.0-12.5) sec INR (<1.2) APTT (22.0-30.0) sec Sodium (137-145) mmol/L Potassium (3.5-5.1) mmol/L Chloride (98-107) mmol/L Carbon Dioxide (22-30) mmol/L Anion Gap mmol/L BUN (9-20) mg/dL Creatinine (0.66-1.25) mg/dL Est GFR (CKD-EPI)AfAm (>60 ml/min/1.73 sqM) Est GFR (CKD-EPI)NonAf (>60 ml/min/1.73 sqM) Glucose (74-99) mg/dL Calcium (8.4-10.2) mg/dL Magnesium (1.6-2.3) mg/dL Total Bilirubin (0.2-1.3) mg/dL AST (17-59) U/L ALT (4-49) U/L Alkaline Phosphatase (38-126) U/L Troponin I <0.012 (0.000-0.034) ng/mL Total Protein (6.3-8.2) g/dL Albumin (3.5-5.0) g/dL Disposition Clinical Impression: Fatigue Disposition: HOME SELF-CARE Condition: Fair Instructions (If sedation given, give patient instructions): Weakness (ED) Is patient prescribed a controlled substance at d/c from ED?: No Referrals: Sarah Valenzuela MD [Primary Care Provider] - 1-2 days Time of Disposition: 13:56
[2025-03-03] MEDS: SODIUM CHLORIDE 0.9% 1,000 ML IV STA (12:42)
[2025-03-03 12:51] LABS: ALT 68 U/L (4-49); African American GFR (CKD) >90 (>60 ml/min/1.73 sqM); Anion Gap 13 mmol/L; Blood Urea Nitrogen 17 mg/dL (9-20); Calcium 9.7 mg/dL (8.4-10.2); Carbon Dioxide 26 mmol/L (22-30); Chloride 99 mmol/L (98-107); Glucose 131 mg/dL (74-99); Non-African American GFR(CKD) >90 (>60 ml/min/1.73 sqM); Sodium 138 mmol/L (137-145)
[2025-03-03 12:52] LABS: Potassium 4.2 mmol/L (3.5-5.1)
[2025-03-03 12:53] LABS: AST 63 U/L (17-59); Albumin 4.9 g/dL (3.5-5.0); Alkaline Phosphatase 76 U/L (38-126); Magnesium 2.0 mg/dL (1.6-2.3); Total Protein 7.8 g/dL (6.3-8.2)
--- NOTE | 2025-03-03 12:55 | XR ---
EXAMINATION TYPE: XR chest 2V DATE OF EXAM: 03/03/2025 12:37 PM COMPARISON: None TECHNIQUE: XR chest 2V Frontal and lateral views of the chest. CLINICAL INDICATION:Male, 49 years old with history of Chest Pain; FINDINGS: Lungs/Pleura: There is no evidence of pleural effusion, focal consolidation, or pneumothorax. Pulmonary vascularity: Unremarkable. Heart/mediastinum: Cardiomediastinal silhouette is unremarkable. Musculoskeletal: No acute osseous pathology. IMPRESSION: No acute cardiopulmonary disease/process. [facility], , 03/03/2025 12:53 PM
[2025-03-03 12:58] LABS: INR 0.9 (<1.2); Partial Thromboplastin Time 20.5 sec (22.0-30.0); Prothrombin Time 10.3 sec (10.0-12.5)
[2025-03-03 13:46] VITALS: BP 135/75; PULSE 82; RESP 16
== END 2025-03-03 14:07 | disposition home or self-care (01) ==
LOC: EC 11:58
DX: R53.1 Weakness (principal); R53.83 Other fatigue; Z88.2 Allergy status to sulfonamides
CPT/HCPCS: 36415; 71046; 80053; 83735; 84484; 85025; 85610; 85730; 93005; 96360; 99285